=== PATIENT | female | born 1960 | race Caucasian/White ===

== ENCOUNTER 2025-07-21 18:29 | Observation (INO) ==
[2025-07-21] MEDS ORDERED: PROPOFOL 200 MG/20 ML VIAL IV ONE (20:10)
[2025-07-21] MEDS: PROPOFOL 200 MG/20 ML VIAL IV ONE (20:30)
[2025-07-21] MEDS: fentaNYL 100 MCG/2 ML VIAL IV ONE (20:35)
[2025-07-21] MEDS: fentaNYL 100 MCG/2 ML VIAL ONE (20:50)
[2025-07-21] MEDS ORDERED: ACETAMINOPHEN 325 MG TABLET PO PRN (20:51)
[2025-07-21 21:04] LABS: Basophils # (Auto) 0.01 K/mcL (0.00-0.30); Basophils % (Auto) 0.1 % (0.0-2.0); Eosinophils # (Auto) 0.17 K/mcL (0.00-0.70); Eosinophils % (Auto) 1.7 % (0.0-7.0); Hematocrit 46.3 % (34.1-44.9); Hemoglobin 15.1 g/dL (11.2-15.7); Lymphocytes # (Auto) 1.83 K/mcL (1.50-4.80); Lymphocytes % (Auto) 18.3 % (15.5-49.0); Mean Corpuscular HGB Conc 32.6 g/dL (31.0-36.0); Monocytes # (Auto) 0.89 K/mcL (0.10-0.90); Monocytes % (Auto) 8.9 % (1.0-12.0); Neutrophils % (Auto) 70.9 % (38.0-78.0); Platelet Count 260 K/mcL (140-440); RBC 5.09 M/mcL (3.59-5.38); WBC 10.0 K/mcL (4.5-11.0)
[2025-07-21 21:41] LABS: INR 0.9 (0.9-1.1); Prothrombin Time 12.7 sec (11.9-14.5)
[2025-07-21 21:43] LABS: ALT/SGPT 27 U/L (<40); AST/SGOT 26 U/L (<32); Albumin 4.1 gm/dL (3.2-5.2); Albumin/Globulin Ratio 1.5 (1.0-2.3); Alkaline Phosphatase 85 U/L (39-117); Anion Gap 12.0 (8.0-16.0); Bilirubin,Total 0.9 mg/dL (0.1-1.0); Blood Urea Nitrogen 16 mg/dL (8-23); Calcium 9.4 mg/dL (8.6-10.4); Carbon Dioxide 24 mmol/L (22-30); Chloride 103 mmol/L (96-108); Globulin 2.7 gm/dL (2.2-3.7); Glucose 101 mg/dL (70-105); Potassium 4.1 mmol/L (3.3-5.1); Sodium 139 mmol/L (133-145)
[2025-07-21] MEDS: HYDROmorphone 0.5 MG/0.5 ML SYRINGE IV PRN (22:03)
[2025-07-21] MEDS: LOSARTAN 50 MG TABLET PO SCH (22:08)
[2025-07-21] MEDS: 0.9 % SODIUM CHLORIDE 1,000 ML IV SCH (23:44)
[2025-07-22] MEDS: TELMISARTAN 80 MG TABLET PO SCH
[2025-07-22] MEDS: ONDANSETRON 4 MG/2 ML VIAL IV PRN (02:59)
[2025-07-22 05:58] LABS: Basophils # (Auto) 0.02 K/mcL (0.00-0.30); Basophils % (Auto) 0.2 % (0.0-2.0); Eosinophils # (Auto) 0.07 K/mcL (0.00-0.70); Eosinophils % (Auto) 0.7 % (0.0-7.0); Hematocrit 45.0 % (34.1-44.9); Hemoglobin 13.9 g/dL (11.2-15.7); Lymphocytes # (Auto) 1.22 K/mcL (1.50-4.80); Lymphocytes % (Auto) 12.1 % (15.5-49.0); Mean Corpuscular HGB Conc 30.9 g/dL (31.0-36.0); Monocytes # (Auto) 0.79 K/mcL (0.10-0.90); Monocytes % (Auto) 7.8 % (1.0-12.0); Neutrophils % (Auto) 78.9 % (38.0-78.0); Platelet Count 213 K/mcL (140-440); RBC 4.69 M/mcL (3.59-5.38); WBC 10.1 K/mcL (4.5-11.0)
[2025-07-22 06:16] LABS: ALT/SGPT 22 U/L (<40); AST/SGOT 20 U/L (<32); Albumin 3.6 gm/dL (3.2-5.2); Albumin/Globulin Ratio 1.5 (1.0-2.3); Alkaline Phosphatase 74 U/L (39-117); Anion Gap 11.0 (8.0-16.0); Bilirubin,Direct 0.3 mg/dL (<0.3); Bilirubin,Total 0.9 mg/dL (0.1-1.0); Blood Urea Nitrogen 14 mg/dL (8-23); Calcium 8.5 mg/dL (8.6-10.4); Carbon Dioxide 23 mmol/L (22-30); Chloride 107 mmol/L (96-108); Globulin 2.4 gm/dL (2.2-3.7); Glucose 131 mg/dL (70-105); Phosphorous 3.7 mg/dL (2.5-4.5); Potassium 3.8 mmol/L (3.3-5.1); Sodium 141 mmol/L (133-145); Triglycerides 101 mg/dL (<150); Uric Acid 4.9 mg/dL (2.5-8.0)
[2025-07-22] MEDS ORDERED: PROPOFOL 200 MG/20 ML VIAL IV ONE (08:10)
[2025-07-22] MEDS ORDERED: ONDANSETRON 4 MG/2 ML VIAL ONE (08:10)
[2025-07-22] MEDS ORDERED: fentaNYL 100 MCG/2 ML VIAL ONE (08:10)
[2025-07-22] MEDS ORDERED: LIDOCAINE 2% PF 5 ML VIAL ONE (08:10)
[2025-07-22] MEDS ORDERED: MAGNESIUM SULFATE 2 GM/50 ML BAG IV ONE (08:10)
[2025-07-22] MEDS ORDERED: DEXAMETHASONE 10 MG/ML VIAL ONE (08:10)
[2025-07-22] MEDS: SCOPOLAMINE 1 PATCH PATCH TOPICAL PRN (08:50)
[2025-07-22] MEDS ORDERED: IPRATROPIUM/ALBUTEROL 3 ML AMPUL.NEB NEB PRN ×2 (09:00→10:24)
[2025-07-22] MEDS: ceFAZolin 2 GM in DEXTROSE 5% IN WATER 50 ML IV SCH (09:41)
[2025-07-22] MEDS ORDERED: ePHEDrine 50 MG/5 ML SYRINGE (ANEST) IV ONE (09:51)
[2025-07-22] MEDS ORDERED: fentaNYL 100 MCG/2 ML VIAL IV PRN (10:24)
[2025-07-22] MEDS ORDERED: LACTATED RINGERS 250 ML IV PRN (10:24)
[2025-07-22] MEDS ORDERED: METHOCARBAMOL 1,000 MG/10 ML VIAL IV PRN (10:24)
[2025-07-22] MEDS ORDERED: diphenhydrAMINE 50 MG/ML VIAL IV PRN (10:24)
[2025-07-22] MEDS ORDERED: NALOXONE HCL 0.4 MG/ML VIAL IV PRN (10:24)
[2025-07-22] MEDS ORDERED: MEPERIDINE 25 MG/ML VIAL IV PRN (10:24)
[2025-07-22] MEDS ORDERED: ONDANSETRON 4 MG/2 ML VIAL IV PRN ×2 (10:24)
[2025-07-22] MEDS: BUPIVACAINE 0.5% 50 ML VIAL IJ ONE (10:43)
[2025-07-22] MEDS: ACETAMINOPHEN 1,000 MG/100 ML BAG IV ONE (11:07)
[2025-07-22] MEDS: LACTATED RINGERS 1,000 ML IV SCH (12:18)
[2025-07-22] MEDS: 0.9 % SODIUM CHLORIDE 10 ML SYRINGE IV SCH (12:19)
[2025-07-22 16:52] VITALS: TEMP 98.2; O2SAT 96
== END 2025-07-22 16:44 | disposition home or self-care (01) ==
LOC: MEDSUR 18:29 → ED 18:29 → MEDSUR 21:39
PROVIDERS: ADMIT Orthopaedic Surgery; ATTEND Orthopaedic Surgery